=== PATIENT | female | born 1975 | race Caucasian/White ===

== ENCOUNTER 2021-07-14 14:45 | Emergency (ER) | payer BC ==
[~2021-07-14] VITALS: Ht 167.6 cm; Wt 61.9 kg
[2021-07-14 14:46] VITALS: BP 134/80
[2021-07-14] MEDS ORDERED: ESTR125TA PO (14:52)
[2021-07-14] MEDS ORDERED: NEOSPORIN OINT 0.9 GM PKT TOP ONE (17:10)
[2021-07-14] MEDS ORDERED: LIDO3CRE14 TOP (17:13)
[2021-07-14] MEDS ORDERED: BACI500O21 TOP (17:13)
== END 2021-07-14 17:22 | disposition home or self-care (01) ==
LOC: M ED 14:45
DX: T20.10XA Burn of first degree of head, face, and neck, unspecified site, initial encounter (principal); T20.14XA Burn of first degree of nose (septum), initial encounter; T20.22XA Burn of second degree of lip(s), initial encounter; X08.8XXA Exposure to other specified smoke, fire and flames, initial encounter; Y92.018 Other place in single-family (private) house as the place of occurrence of the external cause